=== PATIENT | female | born 1995 | race Caucasian/White ===

== ENCOUNTER 2018-11-25 03:00 | Inpatient (IN) | payer MEDICAID ==
[2018-11-25] MEDS ORDERED: METHYLERGONOVINE 0.2 MG INJ IM ×2 (03:30→10:30)
[2018-11-25] MEDS ORDERED: MISOPROSTOL 200 MCG TAB PR ×2 (03:30→10:30)
[2018-11-25] MEDS ORDERED: LIDOCAINE 1% (MPF) 30 ML INJ INJ (03:30)
[2018-11-25] MEDS ORDERED: OXYTOCIN 30 UNITS/LR 500 ML IV ×3 (03:30→10:30)
[2018-11-25] MEDS ORDERED: BUTORPHANOL 2 MG INJ IV (03:30)
[2018-11-25] MEDS ORDERED: CARBOPROST 250 MCG INJ IM ×2 (03:30→10:30)
[2018-11-25] MEDS: LACTATED RINGER'S 1,000 ML IV ×2 (03:42→04:56)
[2018-11-25 03:52] LABS: ADD MAN DIFF? NO
[2018-11-25 03:59] LABS: BASOPHILS % 0.5 % (0.0-2.0); EOSINOPHILS # 0.1 10^3/ul (0.0-0.5); EOSINOPHILS % 0.7 % (0.0-7.0); HEMATOCRIT 36.1 % (37.0-47.0); HEMOGLOBIN 12.3 g/dl (12.0-16.0); LYMPHOCYTES % 23.1 % (15.0-51.0); MEAN CORPUSCULAR HEMOGLOBIN 31.9 pg (29.0-33.0); MEAN CORPUSCULAR HGB CONC 34.1 g/dl (32.0-37.0); MEAN CORPUSCULAR VOLUME 93.5 fl (82.0-101.0); MEAN PLATELET VOLUME 12.6 fl (7.4-10.4); MONOCYTE # 0.6 10^3/ul (0.3-0.9); MONOCYTES % 7.2 % (0.0-11.0); NEUTROPHIL # 5.9 10^3/ul (1.6-7.5); NEUTROPHILS % 68.2 % (39.0-77.0); PLATELET COUNT 196 10^3/UL (140-415); RED BLOOD COUNT 3.86 10^6/ul (4.20-5.40); RED CELL DISTRIBUTION WIDTH 13.2 % (11.5-14.5)
[2018-11-25 03:59] LABS: WHITE BLOOD COUNT 8.7 10^3/ul (4.8-10.8)
[2018-11-25 04:17] LABS: INR 0.81; PARTIAL THROMBOPLASTIN TIME 27.6 Sec (23.0-35.0); PROTIME 11.3 Sec (11.9-14.9); PT RATIO 0.9
[2018-11-25] MEDS ORDERED: FENTAnyl 2MCG/ML-ROPIV 0.2% 100 ML (04:41)
[2018-11-25] MEDS ORDERED: ONDANSETRON 4 MG INJ IV ×4 (05:00→10:30)
[2018-11-25] MEDS ORDERED: NALOXONE (0.4 MG/ML) INJ IV (05:00)
[2018-11-25] MEDS: FENTAnyl 2MCG/ML-ROPIV 0.2% 100 ML BAG EPI (05:02)
[2018-11-25] MEDS: LACTATED RINGER'S 1,000 ML IV* ×2 (10:07→18:07)
[2018-11-25] MEDS ORDERED: DIBUCAINE 1% 30 GM OINT TOP (10:30)
[2018-11-25] MEDS ORDERED: MAGNESIUM HYDROXIDE 30ML CUP PO ×2 (10:30)
[2018-11-25] MEDS ORDERED: ACETAMINOPHEN 325 MG TAB PO ×2 (10:30)
[2018-11-25] MEDS ORDERED: SENNA/DOCUSATE NA (8.6MG/50MG) TAB PO ×2 (10:30)
[2018-11-25] MEDS ORDERED: CEFAZOLIN 1 GM/50 ML (PMX) 50 ML IVPB (10:30)
[2018-11-25] MEDS ORDERED: BISACODYL 10 MG SUPP PR (10:30)
[2018-11-25] MEDS ORDERED: IBUPROFEN 600 MG TAB NGT (10:30)
[2018-11-25] MEDS ORDERED: morphine 2 MG INJ IV (10:30)
[2018-11-25] MEDS ORDERED: OXYCODONE/ACETAMINOPHEN (5/325) TAB PO ×2 (10:30)
[2018-11-25] MEDS: OXYTOCIN 30 UNITS/LR 500 ML IV ×2 (10:55→13:52)
[2018-11-25] MEDS: LANOLIN HPA 1 PKT TOP (13:52)
[2018-11-25] MEDS: BENZOCAINE 20% 56 ML SPRAY TOP (13:52)
[2018-11-25] MEDS: WITCH HAZEL/GLYCERIN PAD PR (13:52)
[2018-11-25] MEDS: IBUPROFEN 600 MG TAB PO ×2 (13:53→21:20)
[2018-11-25 16:25] LABS: RAPID PLASMA REAGIN NONREACTIVE (NR)
[2018-11-25] MEDS: DOCUSATE SODIUM 100 MG CAP PO (21:20)
[2018-11-26] MEDS: LACTATED RINGER'S 1,000 ML IV* (02:07)
[2018-11-26] MEDS: IBUPROFEN 600 MG TAB PO ×2 (05:49→11:21)
[2018-11-26 06:51] LABS: ADD MAN DIFF? NO
[2018-11-26 06:55] LABS: WHITE BLOOD COUNT 11.2 10^3/ul (4.8-10.8)
[2018-11-26 06:55] LABS: BASOPHILS % 0.3 % (0.0-2.0); EOSINOPHILS # 0.1 10^3/ul (0.0-0.5); EOSINOPHILS % 0.5 % (0.0-7.0); HEMATOCRIT 31.3 % (37.0-47.0); HEMOGLOBIN 10.5 g/dl (12.0-16.0); LYMPHOCYTES # 1.5 10^3/ul (0.8-2.9); MEAN CORPUSCULAR HEMOGLOBIN 31.2 pg (29.0-33.0); MEAN CORPUSCULAR HGB CONC 33.5 g/dl (32.0-37.0); MEAN CORPUSCULAR VOLUME 92.9 fl (82.0-101.0); MEAN PLATELET VOLUME 11.8 fl (7.4-10.4); MONOCYTE # 0.8 10^3/ul (0.3-0.9); MONOCYTES % 6.8 % (0.0-11.0); NEUTROPHIL # 8.9 10^3/ul (1.6-7.5); PLATELET COUNT 178 10^3/UL (140-415); RED BLOOD COUNT 3.37 10^6/ul (4.20-5.40); RED CELL DISTRIBUTION WIDTH 13.4 % (11.5-14.5)
[2018-11-26] MEDS: DOCUSATE SODIUM 100 MG CAP PO ×2 (08:55→22:44)
[2018-11-26] MEDS: LANOLIN HPA 1 PKT TOP (22:44)
[2018-11-27] MEDS: IBUPROFEN 600 MG TAB PO ×2 (00:43→07:17)
[2018-11-27] MEDS: DOCUSATE SODIUM 100 MG CAP PO (09:03)
[2018-11-27] MEDS: DIPHTH/TET/ACEL PERTUSS (ADULT) 0.5 ML VIAL IM* (13:58)
== END 2018-11-27 20:10 | disposition home or self-care (01) | DRG 807 ==
LOC: OBT 03:00 → L-D 03:00 → OBT 03:22 → L-D 03:22 → PP1 10:42
PROVIDERS: Obstetrics & Gynecology
PROC: 10E0XZZ Delivery of Products of Conception, External Approach (ICD-10-PCS; principal; 2018-11-25)
PROC: 0W8NXZZ Division of Female Perineum, External Approach (ICD-10-PCS; 2018-11-25)
DX: O80 Encounter for full-term uncomplicated delivery (principal); Z37.0 Single live birth; Z3A.38 38 weeks gestation of pregnancy; Z23 Encounter for immunization
CPT/HCPCS: 62322; 85025; 85610; 85730; 86592; 86850; 86900; 86901; 90715